=== PATIENT | female | born 1995 | race Two or more races ===

== ENCOUNTER 2024-10-28 14:52 | Outpatient (CLI) | payer BC ==
[2024-10-28 15:09] LABS: MEAN PLATELET VOLUME 9.5 FL (7.4-10.4); RED CELL DISTRIBUTION WIDTH 18.9 % (11.5-14.5)
[2024-10-28 15:31] LABS: CHOL/HDL RATIO 4.2 (0.00-4.99); CREATININE 0.66 MG/DL (0.40-0.90); LDL CHOLESTEROL 100 MG/DL (50-100); TOTAL CARBON DIOXIDE 28.5 MMOL/L (24-32); eGFR > 90 ML/MIN
[2024-10-28 15:47] LABS: PLATELET ESTIMATE NORMAL
[2024-10-28 15:49] LABS: LARGE PLATELETS FEW
== END 2024-10-28 23:59 | disposition home or self-care (01) ==
LOC: LAB 14:52
PROVIDERS: ATTEND Nurse Practitioner
DX: R53.83 Other fatigue (principal); Z13.220 Encounter for screening for lipoid disorders
CPT/HCPCS: 36415; 80053; 80061; 83036; 84443; 85008; 85025

== ENCOUNTER 2025-03-23 10:21 | Outpatient (CLI) | payer BC ==
[2025-03-23 10:54] LABS: MEAN PLATELET VOLUME 9.0 FL (7.4-10.4); RED CELL DISTRIBUTION WIDTH 18.6 % (11.5-14.5)
[2025-03-23 11:14] LABS: URINE HCG NEGATIVE (NEG)
[2025-03-23 11:28] LABS: PLATELET ESTIMATE NORMAL
--- NOTE | 2025-03-23 14:03 | RADIOLOGY REPORT ---
STUDY: US ULTRASOUND OF ABDOMEN TECHNIQUE: [facility] ultrasound was obtained using standard technique with Doppler. INDICATIONS: LIVER ENZYME ELEVATION FINDINGS: PANCREAS: Obscured LIVER: Normal size and increased echotexture. No mass. GALLBLADDER: No gallstones. Negative hoover sign. no gallbladder wall thickening or pericholecystic fluid. COMMON BILE DUCT: Normal in caliber. RIGHT KIDNEY: Normal in size and echogenicity. No mass. No urinary stones. No hydronephrosis. IMPRESSION: 1. No acute cholecystitis. 2. Hepatic steatosis.
--- NOTE | 2025-03-23 14:26 | RADIOLOGY REPORT ---
TRANSABDOMINAL AND TRANSVAGINAL PELVIC ULTRASOUND CLINICAL HISTORY: VAGINAL BLEEDING TECHNIQUE: Multiple grayscale ultrasound images were obtained of the pelvis via transabdominal and transvaginal approach. Limited color Doppler and spectral Doppler acquisitions were also obtained. COMPARISON: None FINDINGS: Uterus: 7.3 x 5.3 x 5.0 cm. The uterine contour is smooth. No myometrial masses are seen. Endometrium: 0.9 cm. No endometrial mass is seen. There is vascularity and movement within the endometrial canal. Right adnexa: right ovary 2.8 x 2.3 x 2.5 cm. Normal arterial blood flow in the ovary. No right adnexal mass seen. Left adnexa: left ovary 2.6 x 1.4 x 2.5 cm. Normal arterial blood flow in the ovary. No left adnexal mass seen. Other: None IMPRESSION: 1. Slight movement and vascularity in the endometrium canal likely related to blood products. 2. Otherwise unremarkable pelvic ultrasound.
[2025-03-23] MEDS ORDERED: NO HOME MEDS (19:07)
[2025-03-24 07:12] LABS: ESTRADIOL 43.8 pg/mL (.); PROLACTIN 15.1 ng/mL (4.8-33.4)
== END 2025-03-23 23:59 | disposition home or self-care (01) ==
LOC: RAD 10:21
PROVIDERS: ATTEND Nurse Practitioner
DX: N93.9 Abnormal uterine and vaginal bleeding, unspecified (principal); R74.8 Abnormal levels of other serum enzymes
CPT/HCPCS: 36415; 76700; 76830; 76856; 81025; 82670; 84146; 84443; 85008; 85025; 93976

== ENCOUNTER 2025-03-23 14:02 | Inpatient (IN) | payer BC ==
[~2025-03-23] VITALS: Ht 162.6 cm; Wt 110.0 kg
--- NOTE | 2025-03-23 14:24 | Physician Documentation ---
History of Present Illness ~ General Chief Complaint: Abnormal Lab(s) Stated Complaint: ABNORMAL LABS Time Seen by MD: 14:34 History of Present Illness Initial Comments This is a 30-year-old female who presents from her primary care office after abnormal liver enzymes and CBC. Patient reports feeling of nausea and fatigue otherwise no other acute symptoms or concerns reported. Patient reports recent heavy vaginal bleeding which she was receiving outpatient workup for, patient reports bleeding has decreased to spotting in the past several days and patient reports one pad per 24 hours and has not had to replace her pad in the past 24 hours. Medication Reconciliation Allergies: Coded Allergies: No Known Allergies (Unverified , 03/23/25) Miscellaneous Medications Home Med List (No Home Medications), (Reported) Past Medical History Past Medical History: No Pertinent History Review of Systems ROS As stated above in the HPI, otherwise all systems are reviewed and negative. Physical Exam Physical Exam Vital Signs: Temperature: 98.6, Heart Rate: 108, Respiratory Rate: 15, BP: 138/78, Pulse Oximetry: 99, Weight: 110.000 Physical Exam VITALS: Reviewed and as above. GENERAL: Alert, nontoxic appearing, no apparent distress. HEENT: PERRLA, EOMI, minimally icteric sclera RESPIRATORY: No increased work of breathing, no respiratory distress, speaking in full clear sentences, clear lung sounds in all macias CV: Regular rate and rhythm no murmur BACK: No CVA tenderness GI: Soft, nondistended, nontender, no rebound, no guarding MUSCULOSKELETAL: SKIN: Minimally jaundice Progress Progress Note 1916: I spoke with hospitalist resident who kindly agrees to assess patient for admission patient for admission. 1947: I spoke with hospitalist resident after evaluation of patient, due to needing gynecology consultation/coverage which is currently unavailable at this facility patient will require transfer. Results/Orders Results/Orders Orders - BOO BETANCOURT MD Ct Abdomen Pelvis (03/23/25 20:55) Completed Orders - BOO BETANCOURT MD Normal Saline 1000ml (0.9% Sodium Chlori (03/23/25 19:35) Ct Abdomen Pelvis (03/23/25 20:55) Iohexol 300mg/Ml 100ml Inj. (Omnipaque-3 (03/23/25 20:05) Vital Signs 03/23/25 03/23/25 03/23/25 03/23/25 14:17 16:24 18:30 19:30 Temp 98.6 Pulse 108 82 81 98 Resp 15 16 16 16 B/P (MAP) 138/78 114/73 (87) 127/80 (96) 131/67 (88) Pulse Ox 99 100 100 100 O2 Flow Rate 0 0 0 03/23/25 20:30 Pulse 81 Resp 16 B/P (MAP) 128/86 (100) Pulse Ox 100 O2 Flow Rate 0 Laboratory Tests Test 03/23/25 14:43 White Blood Count 6.3 Red Blood Count 3.52 L Hemoglobin 6.6 *L Hematocrit 22.1 L Mean Corpuscular Volume 62.8 L Mean Corpuscular Hemoglobin 18.6 L Mean Corpuscular Hemoglobin Concent 29.6 L Red Cell Distribution Width 18.7 H Platelet Count 203 Mean Platelet Volume 8.8 Neutrophils (%) (Auto) 69.6 Lymphocytes (%) (Auto) 20.9 L Monocytes (%) (Auto) 7.5 Eosinophils (%) (Auto) 1.3 Basophils (%) (Auto) 0.7 Neutrophils # (Auto) 4.4 Lymphocytes # (Auto) 1.3 Monocytes # (Auto) 0.5 Eosinophils # (Auto) 0.1 Basophils # (Auto) 0.0 CBC Comment Platelet Estimate Normal Red Blood Cell Morphology Perf Polychromasia 1+ Hypochromasia 2+ Poikilocytosis 1+ Basophilic Stippling Anisocytosis 2+ Stomatocytes F Sodium Level 141 Potassium Level 3.4 L Chloride Level 107 Carbon Dioxide Level 28.8 Anion Gap 5 L Blood Urea Nitrogen 8 Creatinine 0.52 Estimated GFR/1.73 m2 > 90 BUN/Creatinine Ratio 15.4 Glucose Level 122 H Calcium Level 8.6 Total Bilirubin 1.7 H Aspartate Amino Transf (AST/SGOT) 37 Alanine Aminotransferase (ALT/SGPT) 76 Alkaline Phosphatase 72 Total Protein 7.7 Albumin 3.5 Globulin 4.2 Albumin/Globulin Ratio 0.8 L Human Chorionic Gonadotropin, Qual Negative Chemistry Comments EKG/XRAY/CT/US/VASC/MRI EKG : Intepreting Monitor?: Yes Additional Comment ELECTROCARDIOGRAM Patient: MICHELLE BOURGEOIS Medical Record: [id number] [facility] : 1995, Age: 30Sex: F Location: ED HOLD Patient Status: ADM IN Service Date/Time: Ordering Physician: XIOMARA NEGRETE Exam Name: EKG/ACS Related Symptoms Technologist: [facility] Test Date: 2025-03-23 Test Time: 21:16:27 Pat Name: MICHELLE BOURGEOIS Department: ED HOLD Room: ED 11 1 Gender: F Radiology Therapist: RANDY : 1995 Requested By: XIOMARA NEGRETE Order Number: [id number] Reading MD: Dr. Boo Betancourt Measurements Intervals [place] Rate: 88 P: 26 NE: 148 QRS: 57 QRSD: 76 T: 21 QT: 354 QTc: 429 Interpretive Statements Sinus rhythm Electronically Signed On 03-23-2025 21:21:[address] Boo Betancourt Please click the below link to view image of tracing. EKG Date and Time:03/23/252115 Electronically Signed by: BOO BETANCOURT MD Date and Time: 03/23/252120 NO PRIMARY CARE PROVIDER~ cc: ~ CT : Interpreted By: radiologist CT: abdomen/pelvis With Contrast?: No Impression [address] [place], [place] - [address] CAT SCAN Patient: MICHELLE BOURGEOIS Medical Record: [id number] [facility] : 1995, Age: 30 Sex: Female Location: ED HOLD Patient Status: ADM IN Service Date/Time: 03/23/252054 Ordering Physician: BOO BETANCOURT MD Exam: CT ABDOMEN PELVIS EXAM: CT CT ABDOMEN PELVIS W/ IV CONTRAST History: ABD PAIN, vag bleeding anemic Comparison Study: US ULTRASOUND OF ABDOMEN on DOS: 03/23/25 TECHNIQUE: Multidetector spiral CT of the abdomen and pelvis was performed from lung bases to pubic symphysis. Initial imaging was done without IV contrast, followed by post contrast images of the abdomen and pelvis. Intravenous contrast was administered during this examination. Multiphase imaging was obtained. Axial, coronal and sagittal multiplanar reformats were performed by the technologist on a separate workstation. Radiation Dose : CT Dose: CTDI volume is 33 mGy. Dose-length product is 2734 mGy*cm FINDINGS: No acute arterial hemorrhage identified Lung Bases: No acute or significant lung base finding. Normal heart size. No pleural or pericardial effusion. Liver: The liver is normal in size. No focal lesions. Normal hepatic vascular enhancement. Gallbladder and Biliary Tree: Unremarkable Spleen: Unremarkable Pancreas: The pancreas is normal in appearance without focal lesions or abnormal enhancement. Adrenal Glands: Unremarkable Kidneys: Kidneys demonstrate normal symmetric enhancement without focal lesions, calculi or hydronephrosis. Bladder: Unremarkable Bowel: The stomach is grossly normal in appearance. Small bowel and colon are normal in caliber and distribution. The appendix is not visualized; however, no secondary findings of acute appendicitis identified. Ascites: Absent Lymphadenopathy: No mesenteric, retroperitoneal or periportal lymphadenopathy. Abdominal Wall and Mesentery: Unremarkable. Vasculature: The visualized abdominal aorta is normal in size and caliber. Abdominal and pelvic vessels demonstrate normal enhancement. Pelvic Organs: Unremarkable Musculoskeletal: No aggressive focal bony lesions, acute fractures or dislocation. IMPRESSION: 1. No acute arterial hemorrhage identified. 2. No acute or significant findings. Radiation optimization: All CT scans at this facility use at least one of these dose optimization techniques: automated exposure control mA and/or kV adjustment per patient size (includes targeted exams where dose is matched to clinical indication) or iterative reconstruction. Electronically Signed by:PAULETTE MEDLEY MD Date & Time: 03/23/252115 Dictated by: PAULETTE MEDLEY MD Dictation date and time: 03/23/252115 Primary Care Provider: NO PRIMARY CARE PROVIDER cc: BOO BETANCOURT MD ~ Medical Decision Making Additional information obtaine: old records Findings MSE performed in triage and patient returned to ED lobby by nursing staff to await available ED room Lab work returned indicating hemoglobin 6.6 hematocrit 22.1 indicating need for blood transfusion especially given patient's report of feeling of generalized fatigue and weakness. Consideration of source of the anemia to patient's report of recent heavy abnormal menstrual bleeding that had persisted for over two months with recent near complete resolution, though other sources of anemia also considered. Patient is hemodynamically stable though found to be somewhat tachycardic. Given symptomatic anemia patient will require admission for further evaluation, monitoring and risk stratification. Hospitalist team contacted. Outpatient imaging reviewed demonstrating thickened endometrium with vascularity without evidence of uterine fibroids on outpatient pelvic ultrasound otherwise all other ultrasound findings within normal limits, imaging interpreted as no active gynecologic emergency. Case discussed with and advised on by Dr. Boo Betancourt attending ED MD. Dr. Betancourt advises admission for symptomatic anemia. Differential Diagnosis Anemia, hypotension, hemorrhage, GI bleed, Departure Time of Disposition: 18:11 Disposition: 09 ADMITTED INPATIENT Impression: Primary Impression: Symptomatic anemia Condition: Stable Referrals: NO PRIMARY CARE PROVIDER (PCP) Education Educated: Patient, Family Educated regarding: diagnosis, treatment, prognosis Signature Scribe Signature: No scribe Attestation: The note accurately reflects work and decisions made by me.CLEMENT Milian 03/23/25 18:14 ELDON CALDERÓN Mar 23, 2025 14:24 NESTOR MELTON MD Mar 23, 2025 23:18 BOO BETANCOURT MD Mar 25, 2025 13:46
[2025-03-23 14:58] LABS: MEAN PLATELET VOLUME 8.8 FL (7.4-10.4); RED CELL DISTRIBUTION WIDTH 18.7 % (11.5-14.5)
[2025-03-23 15:18] LABS: CREATININE 0.52 MG/DL (0.40-0.90); TOTAL CARBON DIOXIDE 28.8 MMOL/L (24-32); eCRCL 139 ML/MIN; eGFR > 90 ML/MIN
[2025-03-23 15:58] LABS: PLATELET ESTIMATE NORMAL
[2025-03-23] MEDS ORDERED: NO HOME MEDS (19:07)
[2025-03-23 19:55] LABS: HCG SERUM QL NEGATIVE
[2025-03-23] MEDS ORDERED: iohexol 300mg/ml 100ml inj. ONE (20:05)
[2025-03-23] MEDS: normal saline 1000ML IV soln IVB ONE (20:27)
[2025-03-23] MEDS ORDERED: HYDROcodone/acetaminophen 10/325mg tab PO PRN (21:00)
[2025-03-23] MEDS ORDERED: potassium Cl 40MEQ/1/2NS 520ml 520 ML IV PRN (21:00)
[2025-03-23] MEDS ORDERED: magnesium Cl slow-release 64mg tablet PO PRN (21:00)
[2025-03-23] MEDS ORDERED: potassium Cl 20 mEq SR tablet PO PRN ×2 (21:00)
[2025-03-23] MEDS ORDERED: HYDROcodone/acetaminophen 5mg/325mg tablet PO PRN (21:00)
[2025-03-23] MEDS ORDERED: magnesium hydroxide 30ml (MOM) UD suspension PO PRN (21:00)
[2025-03-23] MEDS ORDERED: ondansetron/PF 4mg/2ml inj IV PRN (21:00)
[2025-03-23] MEDS ORDERED: magnesium sulf-water 4G/100mL 100 ML IV PRN (21:00)
[2025-03-23] MEDS ORDERED: mag hydrox/Alum hydrox/simeth 30ml oral suspension PO PRN (21:00)
[2025-03-23] MEDS ORDERED: magnesium sulf-water 2g/50mL 50 ML IV PRN (21:00)
--- NOTE | 2025-03-23 21:14 | HISTORY AND PHYSICAL-Residence ---
History & Physical Providers to CC Resident Creating Document: ANKUSH NEGRETE, MARVA ~ History of Present Illness Primary Medical Doctor: Adele Colunga Reason for Admit\Complaint: SEVERE SYMPTOMATIC ANEMIA, History of Present Illness 30-year-old pleasant female without significant past medical history came to the ER with severe anemia and abnormal uterine bleeding. She endorsed that she is having vaginal bleeding for the past eight weeks, changing 3-4 pads per day, heavy bleeding associated with clots and abdominal discomfort and now she is complaining of vaginal spotting type of bleeding. She reported dizziness for the past two weeks while she tries to stand up from sitting position. She is complaining of the nausea for the past two weeks after having a big meal. She reports shortness of breathe for the past couple of weeks and not associated with orthopnea and PND. She is complaining of the extreme fatigue for the past two weeks. She denied heartburn, indigestion, dyspepsia, acid reflux, hematemesis, melena, bleeding per rectum, chest pain, swelling of legs, facial puffiness, abdominal distention, weakness of limbs, slurring of speech, deviation of angle of mouth, seizures, decreased urine output, itching, jaundice, rash. Discussed code status with the patient patient wants to be full code PCP Dr. Adele Colunga credit collections specialist: [facility](she did not med credit collections specialist so far and informed us that she is going to get 1st appointment with OBGYN) Allergies: Coded Allergies: No Known Allergies (Unverified , 03/23/25) Home Medications Home Medications Active Reported No Home Medications (Home Med List) Each Past Medical History Past Medical History None Past Surgical History Surgical History Comment None Family History Family History: Patient reports no known family medical history. Past Social History Social History Comment Family history of preeclampsia for mother Smoking: Non-Smoker Alcohol Use: None Drug Use: None Lives with: Family Lives In: Home Occupation: employed ROS Constitutional: Reports: weakness Eyes: Reports: no symptoms reported ENT: Reports: no symptoms reported Respiratory: Reports: shortness of breath Cardiovascular: Reports: no symptoms reported Gastrointestinal: Reports: no symptoms reported Genitourinary: Reports: no symptoms reported Female Genitalia: Reports: abnormal bleeding Neurological: Reports: no symptoms reported Musculoskeletal: Reports: no symptoms reported Integumentary: Reports: no symptoms reported Allergic/Immunologic: Reports: no symptoms reported Hematologic/Lymphatic: Reports: no symptoms reported Endocrine: Reports: no symptoms reported Psychiatric: Reports: no symptoms reported Unable to obtain: altered mental status Exam Vitals: Vital Signs Date Time Temp Pulse Resp B/P (MAP) Pulse Ox O2 Delivery O2 Flow Rate FiO2 03/23/25 16:24 82 16 114/73 (87) 100 0 03/23/25 14:17 98.6 General: General: Alert, awake, oriented to time, place, person. Not in acute distress. Morbidly obese HEENT: Pupils equal, round, reactive to light and accommodation. Extraocular movements are intact. mild pallor is present. No icterus. No carotid upstroke/JVD Respiratory system and chest: Bilateral normal vesicular breath sounds are heard. No crepitation/wheeze. No increased work of breathing. Cardiovascular system: Regular rate and rhythm . S1-S2 are heard. no murmur/gallop/rub Gastrointestinal system: Soft, nontender, nondistended, no rebound tenderness/no guarding/rigidity. No organomegaly. No free fluid in the belly. Bowel sounds are heard. Back: No CVA tenderness. Musculoskeletal: No clubbing, no pedal edema. Skin: Warm and dry. No rash/ulcer over the skin Neurological system: Higher mental functions are intact. Motor system: Tone, power, bulk are normal. Reflexes are intact. Cranial nerves 2-12 is intact. Sensory system : Intact and no deficits Cerebellum : No signs of cerebellar dysfunction Gait: Normal Meningeal signs: No signs of meningeal irritation Diagnostic Data Last Recorded Lab Results: 03/23/25 1443 03/23/25 1443 Advance Care Planning Advanced Care plannin - 30 Minutes Additional Plan Severe symptomatic anemia likely secondary to abnormal uterine bleeding Microcytic hypochromic anemia Possible iron-deficiency anemia Hemoglobin of 6.6 and hematocrit after 2.1 Hemogram is more towards the microcytic hypochromic anemia Beta hCG is normal CMP shows serum bilirubin of 1.7 and potassium of 3.4 PT and INR is normal CT abdomen pelvis shows no arterial bleeding Received 1 unit of LR PC in ER and we ordered one more LRPC We will monitor H&H q.6 H and we will transfuse if hemoglobin is still less than seven Hypokalemia Potassium of 3.4 Patient is on potassium replacement protocol We will continue to monitor CMP Obesity class three Follow up with primary care for lifestyle modifications of weight loss, low calorie food Patient may need the obstructive sleep apnea studies Code status: Full code Diet: Regular diet DVT prophylaxis: SCDs PT: Ordered Prognosis: Guarded Disposition: Initially we were called for admission without urine hCG and imaging for anemia around 7:00 p.m. we spoke with Griffin Rain ER ARCHITECTURAL RENDERER and he requested for admission with hospitalist services. We recommended to do urine hCG because patient is young 30-year-old female and we got a call back and stated that it is negative. We went to see the patient in the ER(myself and Dr. rendon , PGY one resident) and we saw her and examined at bedside and she informed us that she is having the active vaginal bleeding in the form of spotting for the past three days with a background of ongoing bleeding per vagina for the past eight weeks. So we thought patient may need the OBGYN services and we were told by ER that we do not have OBGYN coverage for two weeks so we initially thought patient needs to be transferred to hospital with OBGYN facility , meanwhile we discussed with the night eyeglass lens cutter Dr. Sophia Mccarty and he spoke with the ER and recommended for admission for severe anemia management. Meanwhile patient underwent CAT scan with contrast abdomen and pelvis in ER around 855 p.m. which does not showed any active bleeding . We again went to talk with patient and she agrees to get admitted here after explaining every possible consequences including chance of heavy bleeding that may need the intervention and she agreed to get admitted here after listening to the risks and potential consequences of getting admitted without OBGYN services. We admitted the patient to the PCU with telemetry monitoring. Ankush HAY resident, PGY2 Date of Service: Mar 23, 2025 Billing Provider: SOPHIA MCCARTY MD,ANKUSH, RES Mar 23, 2025 21:14
--- NOTE | 2025-03-23 21:18 | RADIOLOGY REPORT ---
EXAM: CT CT ABDOMEN PELVIS W/ IV CONTRAST History: ABD PAIN, vag bleeding anemic Comparison Study: US ULTRASOUND OF ABDOMEN on DOS: 03/23/25 TECHNIQUE: Multidetector spiral CT of the abdomen and pelvis was performed from lung bases to pubic symphysis. Initial imaging was done without IV contrast, followed by post contrast images of the abdomen and pelvis. Intravenous contrast was administered during this examination. Multiphase imaging was obtained. Axial, coronal and sagittal multiplanar reformats were performed by the technologist on a separate workstation. Radiation Dose : CT Dose: CTDI volume is 33 mGy. Dose-length product is 2734 mGy*cm FINDINGS: No acute arterial hemorrhage identified Lung Bases: No acute or significant lung base finding. Normal heart size. No pleural or pericardial effusion. Liver: The liver is normal in size. No focal lesions. Normal hepatic vascular enhancement. Gallbladder and Biliary Tree: Unremarkable Spleen: Unremarkable Pancreas: The pancreas is normal in appearance without focal lesions or abnormal enhancement. Adrenal Glands: Unremarkable Kidneys: Kidneys demonstrate normal symmetric enhancement without focal lesions, calculi or hydronephrosis. Bladder: Unremarkable Bowel: The stomach is grossly normal in appearance. Small bowel and colon are normal in caliber and distribution. The appendix is not visualized; however, no secondary findings of acute appendicitis identified. Ascites: Absent Lymphadenopathy: No mesenteric, retroperitoneal or periportal lymphadenopathy. Abdominal Wall and Mesentery: Unremarkable. Vasculature: The visualized abdominal aorta is normal in size and caliber. Abdominal and pelvic vessels demonstrate normal enhancement. Pelvic Organs: Unremarkable Musculoskeletal: No aggressive focal bony lesions, acute fractures or dislocation. IMPRESSION: 1. No acute arterial hemorrhage identified. 2. No acute or significant findings. Radiation optimization: All CT scans at this facility use at least one of these dose optimization techniques: automated exposure control mA and/or kV adjustment per patient size (includes targeted exams where dose is matched to clinical indication) or iterative reconstruction.
[2025-03-23] MEDS: normal saline 1000ml 1,000 ML IV SCH (21:19)
--- NOTE | 2025-03-23 21:19 | ELECTROCARDIOGRAPH REPORT ---
[facility] Test Date: 2025-03-23 Test Time: 21:16:27 Pat Name: MICHELLE BOURGEOIS Department: ED HOLD Room: ED 11 1 Gender: F Wash Plant Operator: RANDY : 1995 Requested By: XIOMARA NEGRETE Order Number: [id number] Reading MD: Dr. Boo Betancourt Measurements Intervals [place] Rate: 88 P: 26 ME: 148 QRS: 57 QRSD: 76 T: 21 QT: 354 QTc: 429 Interpretive Statements Sinus rhythm Electronically Signed On 03-23-2025 21:21:[address] Boo Betancourt Please click the below link to view image of tracing.
[2025-03-23 21:30] VITALS: O2SAT 100
[2025-03-23 21:43] LABS: APTT 22 SECONDS (22-32); INR 1.0 INR
[2025-03-23 22:57] VITALS: BP 112/58; PULSE 87; RESP 16; TEMP 98.6
[2025-03-23 23:13] VITALS: BP 106/61; PULSE 85; RESP 16; TEMP 98.6
[2025-03-24 01:53] LABS: MEAN PLATELET VOLUME 9.3 FL (7.4-10.4); RED CELL DISTRIBUTION WIDTH 23.9 % (11.5-14.5)
--- NOTE | 2025-03-24 05:08 | DISCHARGE SUMMARY-Residence ---
Discharge Summary Providers to CC Resident Creating Document: XIOMARA NEGRETE, MARVA ~ Discharge Summary Admission Diagnosis: Severe symptomatic anemia Hospital Course DATE OF ADMISSION: 03/23/2025 DATE OF AMA: 03/24/2025 Discharge Diagnosis\Comment: Severe symptomatic anemia Abnormal uterine bleeding Hypokalemia Morbidly obese class three Operations\Procedures: None Consultants: None Complications: None Condition on DC: Unstable Discharge Summary: HPI at the time of admission 30-year-old pleasant female without significant past medical history came to the ER with severe anemia and abnormal uterine bleeding. She endorsed that she is having vaginal bleeding for the past eight weeks, changing 3-4 pads per day, heavy bleeding associated with clots and abdominal discomfort and now she is complaining of vaginal spotting type of bleeding. She reported dizziness for the past two weeks while she tries to stand up from sitting position. She is complaining of the nausea for the past two weeks after having a big meal. She reports shortness of breathe for the past couple of weeks and not associated with orthopnea and PND. She is complaining of the extreme fatigue for the past two weeks. She denied heartburn, indigestion, dyspepsia, acid reflux, hematemesis, melena, bleeding per rectum, chest pain, swelling of legs, facial puffiness, abdominal distention, weakness of limbs, slurring of speech, deviation of angle of mouth, seizures, decreased urine output, itching, jaundice, rash. Discussed code status with the patient patient wants to be full code PCP Dr. Adele Colunga explosive ordnance disposal specialist: [facility](she did not med explosive ordnance disposal specialist so far and informed us that she is going to get 1st appointment with OBGYN) Hospital course Initially we were called for admission without urine hCG and imaging for anemia around 7:00 p.m. we spoke with Griffin Rain ER PROTECTIVE OFFICER and he requested for admission with hospitalist services. We recommended to do urine hCG because patient is young 30-year-old female and we got a call back and stated that it is negative. We went to see the patient in the ER(myself and Dr. rendon , PGY one resident) and we saw her and examined at bedside and she informed us that she is having the active vaginal bleeding in the form of spotting for the past three days with a background of ongoing bleeding per vagina for the past eight weeks. So we thought patient may need the OBGYN services and we were told by ER that we do not have OBGYN coverage for two weeks so we initially thought patient needs to be transferred to hospital with OBGYN facility , meanwhile we discussed with the night patient information coordinator Dr. Sophia Mccarty and he spoke with the ER and recommended for admission for severe anemia management. Meanwhile patient underwent CAT scan with contrast abdomen and pelvis in ER around 855 p.m. which does not showed any active bleeding . We again went to talk with patient and she agrees to get admitted here after explaining every possible consequences including chance of heavy bleeding that may need the intervention and she agreed to get admitted here after listening to the risks and potential consequences of getting admitted without OBGYN services. We admitted the patient to the PCU with telemetry monitoring for severe symptomatic with microcytic hypochromic anemia, we could not able to rule out iron-deficiency anemia. Patient received 2 units of LRpC and hemoglobin was improved from 6.62 to 8.4. Beta hCG is normal .CMP shows serum bilirubin of 1.7 and potassium of 3.4. PT and INR is normal. CT abdomen pelvis shows no arterial bleeding. Who recommended for outpatient follow up for obstructive sleep apnea and class three morbid obesity. While we are evaluating the patient in the ER patient felt better with the symptoms and she wants to leave against medical advice and we spoke with the head and we explained about possible consequences of going against medical advice including and she wants to go home and she left the hospital building against medical advice. *Problems/Diagnosis: (1) Severe anemia (2) Symptomatic anemia (3) Hypokalemia (4) Class 3 obesity (5) Symptomatic anemia Status: Acute Total Time Spent on D/C: > 30 Minutes Date of Service: Mar 24, 2025 Billing Provider: SOPHIA MCCARTY MD, VENKATESH, RES Mar 24, 2025 05:07
[2025-03-24] MEDS ORDERED: docusate sod 100mg capsule PO SCH (08:00)
[2025-03-24] MEDS ORDERED: K and/or MAG REPLACEMENT MC SCH (08:00)
== END 2025-03-24 03:45 | disposition left against medical advice (07) | DRG 812 ==
LOC: ER 14:02 → ED HOLD 21:11
PROVIDERS: ADMIT Internal Medicine; ATTEND Internal Medicine
PROC: 30233N1 Transfusion of Nonautologous Red Blood Cells into Peripheral Vein, Percutaneous Approach (ICD-10-PCS; principal; 2025-03-23)
DX: D64.89 Other specified anemias (principal); E66.813 Obesity, class 3; Z68.41 Body mass index [BMI] 40.0-44.9, adult; Z53.21 Procedure and treatment not carried out due to patient leaving prior to being seen by health care provider; E87.6 Hypokalemia; N93.9 Abnormal uterine and vaginal bleeding, unspecified
CPT/HCPCS: 36415; 36430; 74177; 80053; 84703; 85008; 85025; 85027; 85610; 85730; 86870; 86885; 86900; 86901; 86902; 86905; 86922; 93005; 96360; 96361; 99285; G0378; J7030; J7040; P9016; Q9967